=== PATIENT | male | born 1990 | race African-American/Black ===

== ENCOUNTER 2021-04-08 14:38 | Emergency (ER) | payer OTHER ==
[~2021-04-08] VITALS: Ht 180.3 cm; Wt 80.0 kg
[2021-04-08] MEDS ORDERED: FAMOTIDINE 20MG TABLET PO ONE (18:45)
[2021-04-08 19:02] LABS: BASOPHILS % 0.4 % (0.0-2.0); EOSINOPHILS % 1.7 % (0.0-5.0); HEMATOCRIT. 44.4 % (42.0-52.0); HEMOGLOBIN. 14.9 g/dL (14.0-18.0); LYMPHOCYTES % 31.6 % (20.0-50.0); MEAN CORPUSCULAR HEMOGLOBIN 30.2 pg (28.0-32.0); MEAN CORPUSCULAR VOLUME 89.7 fL (80.0-94.0); MEAN PLATELET VOLUME 7.7 fl (7.4-10.4); NEUTROPHILS % 60.3 % (40.0-76.0); PLATELET 282 x1000/uL (130-400); RED BLOOD CELL COUNT 4.95 mill/uL (4.7-6.1); RED CELL DISTRIBUTION WIDTH 13.4 % (11.6-14.6)
[2021-04-08 19:07] LABS: CHLORIDE 105 mEq/L (98-107)
[2021-04-08 19:20] VITALS: BP 116/67
[2021-04-08] MEDS ORDERED: FAMO-135 PO (19:20)
== END 2021-04-08 19:25 | disposition home or self-care (01) ==
LOC: ER 14:38
DX: R07.89 Other chest pain (principal); R06.02 Shortness of breath; R10.12 Left upper quadrant pain; F41.9 Anxiety disorder, unspecified
CPT/HCPCS: 36415; 71045; 80053; 85025; 93005; 99285